=== PATIENT | female | born 1950 | race Two or more races ===

== ENCOUNTER 2021-08-09 10:07 | Emergency (ER) | payer OTHER ==
[~2021-08-09] VITALS: Ht 165.1 cm; Wt 63.0 kg
[2021-08-09 12:01] VITALS: BP 154/62
[2021-08-09] MEDS ORDERED: ACETAMINOPHEN 325 MG TAB PO ONE (13:30)
[2021-08-09] MEDS ORDERED: ACET-1080 PO (13:33)
== END 2021-08-09 13:47 | disposition home or self-care (01) ==
LOC: ER 10:07 → EDBD 10:07 → ER 13:47
DX: S93.402A Sprain of unspecified ligament of left ankle, initial encounter (principal); X58.XXXA Exposure to other specified factors, initial encounter; Y93.89 Activity, other specified; Y92.89 Other specified places as the place of occurrence of the external cause; Y99.8 Other external cause status
CPT/HCPCS: 73610